=== PATIENT | female | born 1945 | race Caucasian/White ===

== ENCOUNTER 2018-11-10 20:16 | Emergency (ER) | payer MEDICARE, MEDICAID ==
[~2018-11-10] VITALS: Ht 160 cm; Wt 116.6 kg
[~2018-11-10 20:16] MED LIST: AMLODIPINE BESY10 MG ORAL; ASPIRIN-LOW81 MG ORAL; DOCUSATE SODIU100 MG ORAL; ENALAPRIL MALEAT5 MG ORAL; FLUOXETINE HCL20 MG ORAL; FLUOXETINE HCL40 MG ORAL; LEVOTHYROXINE25 MCG ORAL; LEVOTHYROXINE75 MCG ORAL; stool softener
[2018-11-10 20:20] VITALS: BP 150/92
--- NOTE | 2018-11-10 20:20 | NUR ---
ED Nurse Note: Patient brought in by ambulance c/o 01/07 headache that has been an on going issue for the past couple days, patient denies any vision changes, just complains of a pressure like pain. patient is alert and oriented x4, patient was placed on a monitor add IV started on right AC 20 gauge, patient made a bowel movement upon being placed on monitor bed
--- NOTE | 2018-11-10 20:48 | Emergency Room Report ---
History of Present Illness General Chief Complaint: Headache Present Illness HPI This is a 73-year-old female presents after increased headache for the past few days. Patient had gradual onset of symptoms. She reports having onset of symptoms gradually. She had prior history of hypertension as well as diabetes. She reports having decreased ability to sleep and states her smoke detector had been beeping regularly. She states she takes multiple medications for her blood pressure. She also takes medication for hypothyroidism. She is followed by Dr. Samuel. She denies any fever. Allergies: Coded Allergies: No Known Allergies (Unverified , 02/25/13) Patient History Past Medical History: see triage record Reviewed Nursing Documentation: PMH: Agreed; PSxH: Agreed Nursing Documentation-PMH Hx Cardiac Problems: Yes Hx Hypertension: Yes Hx Diabetes: Yes Hx Cancer: No Hx Gastrointestinal Problems: Yes Hx Neurological Problems: Yes - hypothyroidism Hx Head Trauma: Yes - after fall from bed Review of Systems All Other Systems: negative except mentioned in HPI Physical Exam Vital Signs Date Time Temp Pulse Resp B/P (MAP) Pulse Ox O2 Delivery O2 Flow Rate FiO2 11/10/18 20:16 97.5 77 20 150/92 (111) 99 Room Air Sp02 EP Interpretation: reviewed, normal General Appearance: normal inspection, well appearing, no apparent distress, alert, GCS 15, obese, Chronically Ill Head: atraumatic ENT: normal ENT inspection, hearing grossly normal, normal voice Neck: normal inspection, full range of motion, supple, no bony tend Respiratory: normal inspection, lungs clear, normal breath sounds, no respiratory distress, no retraction, no wheezing Cardiovascular #1: regular rate, rhythm, no edema Gastrointestinal: normal inspection, normal bowel sounds, non tender, soft, no guarding, no hernia Genitourinary: no CVA tenderness Musculoskeletal: normal inspection, back normal, normal range of motion Neurologic: normal inspection, alert, oriented x3, responsive, puff ironer III-XII nml as tested, speech normal Psychiatric: normal inspection, judgement/insight normal, mood/affect normal Medical Decision Making Diagnostic Impression: Primary Impression: Dizziness Additional Impressions: Headache Lactic acid acidosis Cyst, arachnoid ER Course She presented for headache. Differential diagnoses included but was not limited to skull fracture, subarachnoid hemorrhage, meningitis, aneurysm, mass lesion, intracranial hemorrhage. Because of complexity of patient's case laboratory testing and imaging studies were ordered. Laboratory testing showed some evidence of lactic acidosis.Patient was noted to have normal white blood count. Patient started on IV fluids. CT imaging of the head read by radiology showed enlarged cystic lesion posterior fossa consistent with a arachnoid cyst versus [place] cisterna magnaPatient was discussed with Dr. Alvarez for [facility]. Patient will be transferred to [facility] due to lactic acidosis. Labs Test 11/10/18 20:55 11/10/18 22:30 11/10/18 22:50 White Blood Count 8.8 K/UL (4.8-10.8) Red Blood Count 5.09 M/UL (4.20-5.40) Hemoglobin 14.3 G/DL (12.0-16.0) Hematocrit 42.9 % (37.0-47.0) Mean Corpuscular Volume 84 FL (80-99) Mean Corpuscular Hemoglobin 28.1 PG (27.0-31.0) Mean Corpuscular Hemoglobin Concent 33.3 G/DL (32.0-36.0) Red Cell Distribution Width 12.5 % (11.6-14.8) Platelet Count 211 K/UL (150-450) Mean Platelet Volume 6.5 FL (6.5-10.1) Neutrophils (%) (Auto) 70.1 % (45.0-75.0) Lymphocytes (%) (Auto) 21.9 % (20.0-45.0) Monocytes (%) (Auto) 4.0 % (1.0-10.0) Eosinophils (%) (Auto) 2.8 % (0.0-3.0) Basophils (%) (Auto) 1.2 % (0.0-2.0) Prothrombin Time 10.0 SEC (9.30-11.50) Prothromb Time International Ratio 0.9 (0.9-1.1) Activated Partial Thromboplast Time 23 SEC (23-33) Sodium Level 143 MMOL/L (136-145) Potassium Level 4.0 MMOL/L (3.5-5.1) Chloride Level 109 MMOL/L (98-107) Carbon Dioxide Level 26 MMOL/L (21-32) Anion Gap 8 mmol/L (5-15) Blood Urea Nitrogen 22 mg/dL (7-18) Creatinine 1.0 MG/DL (0.55-1.30) Estimat Glomerular Filtration Rate mL/min (>60) Glucose Level 213 MG/DL (74-106) Calcium Level 9.2 MG/DL (8.5-10.1) Total Bilirubin 0.3 MG/DL (0.2-1.0) Aspartate Amino Transf (AST/SGOT) 22 U/L (15-37) Alanine Aminotransferase (ALT/SGPT) 27 U/L (12-78) Alkaline Phosphatase 80 U/L (46-116) Troponin I 0.014 ng/mL (0.000-0.056) Total Protein 6.9 G/DL (6.4-8.2) Albumin 3.4 G/DL (3.4-5.0) Globulin 3.5 g/dL Albumin/Globulin Ratio 1.0 (1.0-2.7) Lipase 163 U/L (73-393) Thyroid Stimulating Hormone (TSH) 2.359 uiU/mL (0.358-3.740) Urine Color Yellow Urine Appearance Clear Urine pH 5 (4.5-8.0) Urine Specific [place] 1.020 (1.005-1.035) Urine Protein Negative (NEGATIVE) Urine Glucose (UA) Negative (NEGATIVE) Urine Ketones Negative (NEGATIVE) Urine Blood Negative (NEGATIVE) Urine Nitrite Negative (NEGATIVE) Urine Bilirubin Negative (NEGATIVE) Urine Urobilinogen 1 MG/DL (0.0-1.0) Urine Leukocyte Esterase 1+ (NEGATIVE) Urine RBC 0-2 /HPF (0 - 2) Urine WBC 0-2 /HPF (0 - 2) Urine Squamous Epithelial Cells Few /LPF (NONE/OCC) Urine Bacteria Occasional /HPF (NONE) Last Vital Signs Date Time Temp Pulse Resp B/P (MAP) Pulse Ox O2 Delivery O2 Flow Rate FiO2 11/10/18 20:16 97.5 77 20 150/92 (111) 99 Room Air Status: improved Disposition: XFER SHT-TRM HOSP Forrest Yi MD Nov 10, 2018 20:48
[2018-11-10 21:18] LABS: BASOPHILS % (AUTO) 1.2 % (0.0-2.0); EOSINOPHILS % (AUTO) 2.8 % (0.0-3.0); HEMATOCRIT 42.9 % (37.0-47.0); HEMOGLOBIN 14.3 G/DL (12.0-16.0); LYMPHOCYTES % (AUTO) 21.9 % (20.0-45.0); MEAN CORPUSCULAR VOLUME 84 FL (80-99); NEUTROPHILS % (AUTO) 70.1 % (45.0-75.0); PLATELET COUNT 211 K/UL (150-450); RED BLOOD COUNT 5.09 M/UL (4.20-5.40); RED CELL DISTRIBUTION WIDTH 12.5 % (11.6-14.8); WHITE BLOOD COUNT 8.8 K/UL (4.8-10.8)
[2018-11-10 21:23] LABS: ANION GAP 8 mmol/L (5-15); BLOOD UREA NITROGEN 22 mg/dL (7-18); CALCIUM 9.2 MG/DL (8.5-10.1); CARBON DIOXIDE 26 MMOL/L (21-32); CHLORIDE 109 MMOL/L (98-107); SODIUM 143 MMOL/L (136-145)
[2018-11-10 21:28] LABS: ALANINE AMINOTRANSFERASE 27 U/L (12-78); ALBUMIN 3.4 G/DL (3.4-5.0); ALKALINE PHOSPHATASE 80 U/L (46-116); ASPARTATE AMINO TRANSFERASE 22 U/L (15-37); BILIRUBIN,TOTAL 0.3 MG/DL (0.2-1.0)
[2018-11-10 21:33] LABS: INR 0.9 (0.9-1.1)
[2018-11-10 22:45] VITALS: BP 139/72
--- NOTE | 2018-11-10 22:45 | NUR ---
ED Nurse Note: Patient sleeping calmly in bed
[2018-11-10 23:05] LABS: APPEARANCE,URINE CLEAR; BILIRUBIN, URINE NEGATIVE (NEGATIVE); GLUCOSE, URINE (UA) NEGATIVE (NEGATIVE); KETONES,URINE NEGATIVE (NEGATIVE); LEUKOCYTE ESTERASE ,URINE 1+ (NEGATIVE); NITRITE,URINE NEGATIVE (NEGATIVE); PH,URINE 5 (4.5-8.0); PROTEIN,URINE NEGATIVE (NEGATIVE); UROBILINOGEN,URINE 1 MG/DL (0.0-1.0)
[2018-11-10 23:06] LABS: COLOR,URINE YELLOW
--- NOTE | 2018-11-11 00:38 | NUR ---
ED Nurse Note: Patient is being transferre to [facility] and is accompanied by BLS transport, report given to CLAUDE Woods
[2018-11-11 00:39] VITALS: BP 139/72
--- NOTE | 2018-11-11 11:47 | Diagnostic Imaging Report ---
Indication: Headache Technique: Contiguous 5 mm thick transaxial imaging of the head obtained in a Siemens Sensation [address] scanner. Soft tissue and bone windows generated. Automatic Exposure Control was utilized. Total Dose length Product (DLP): 1414.[address] Dose Index Volume (CTDIvol): 70.38 mGy Comparison: none Findings: The size and configuration of the cortical sulci, basal cisterns, and ventricles are within normal limits for age. There is no mass effect, midline shift, or edema identified. There is no evidence of acute hemorrhage. In the posterior fossa there is a approximately 3.5 x 6.7 cm cystic region posterior to the cerebellum. This could be a jone-cisterna magna versus arachnoid cyst and is likely incidental. The bones and soft tissues are unremarkable. Impression: No mass effect, edema or acute bleed. Posterior fossa cyst versus jone-cisterna magna The CT scanner at [facility] is accredited by the [employer] and the scans are performed using dose optimization techniques as appropriate to a performed exam including Automatic Exposure control.
--- NOTE | 2018-11-11 12:05 | Diagnostic Imaging Report ---
Indication: Dyspnea Comparison: None A single view chest radiograph was obtained. Findings: No definite infiltrate or pulmonary vascular congestion identified. The heart is enlarged. The aorta is mildly enlarged consistent with atherosclerotic vascular disease. The bones are osteopenic. Impression: No acute disease
--- NOTE | 2018-11-14 15:09 | Cardiology Report ---
APPROVED REPORT EKG Measurement Heart [id number] ME [id number] Normal sinus rhythm Incomplete right bundle branch block Borderline ECG
== END 2018-11-11 00:40 | disposition short-term general hospital (02) ==
LOC: EDBD 20:16 → EMR 20:52
DX: G93.0 Cerebral cysts (principal); R51 Headache; R42 Dizziness and giddiness; E87.2 Acidosis; E11.9 Type 2 diabetes mellitus without complications; I10 Essential (primary) hypertension; E03.9 Hypothyroidism, unspecified
CPT/HCPCS: 36415; 70450; 71045; 80053; 81003; 83605; 83690; 84443; 84484; 85025; 85610; 85730; 87040; 87081; 87181; 93005; 96360; 99284